=== PATIENT | male | born 1975 | race Caucasian/White ===

== ENCOUNTER 2017-03-23 11:01 | Emergency (ER) | payer BC ==
[2017-03-23 11:08] VITALS: BP 137/105
[2017-03-23] MEDS ORDERED: Sodium Chloride 0.9% 10 ML Syringe FLUSH PRN (11:12)
[2017-03-23] MEDS ORDERED: Adenosine 6 MG/2 ML SDV IVPUSH ONE (11:13)
[2017-03-23] MEDS ORDERED: Adenosine 6 MG/2 ML SDV ONE (11:14)
[2017-03-23] MEDS ORDERED: Sodium Chloride 0.9% 1,000 ML IV SCH (11:15)
[2017-03-23] MEDS ORDERED: Adenosine 12 MG/4 ML SDV ONE (11:15)
[2017-03-23] MEDS ORDERED: Adenosine 12 MG/4 ML SDV IVPUSH ONE (11:24)
--- NOTE | 2017-03-23 11:49 | EDM.PDOC ---
ED HPI GENERAL MEDICAL PROBLEM - General Chief Complaint: Cardiovascular Problem Stated Complaint: RAPID HEART RATE Time Seen by Provider: 03/23/17 11:07 Source of Information: Reports: Patient History Limitations: Reports: No Limitations - History of Present Illness INITIAL COMMENTS - FREE TEXT/NARRATIVE: The patient presents with SVT. He has a history of this. His last episode was last June. He has had about 6 episodes. He woke up with it. He has some mild chest tightness and shortness of breath. He has no fever, chills, cough, congestion or runny nose. He has been eating and drinking okay. He had 1 beer over the weekend. He has no abdominal pain, nausea or vomiting. He sees Dr Adkins. He has not seen a senior resident care director in years but he admits he may because he has had more episodes. Onset: Gradual Duration: Hour(s): (Woke up with it this morning) Location: Reports: Chest Quality: Reports: Other (Tightness) Severity: Mild Improves with: Reports: None Worsens with: Reports: None Context: Reports: Other (Woke up with it) Associated Symptoms: Reports: Chest Pain, Shortness of Breath. Denies: Cough, Fever/Chills, Nausea/Vomiting Chest Pain Score (Numeric/FACES): 5 - Related Data Allergies Allergy/AdvReac Type Severity Reaction Status Date / Time No Known Allergies Allergy Verified 03/23/17 11:08 Home Meds: Home Meds Lisinopril 10 mg PO DAILY 11/20/13 [History] Past Medical History HEENT History: Reports: Impaired Vision Other HEENT History: wears corrective lenses Cardiovascular History: Reports: Arrhythmia, Hypertension, Other (See Below) Other Cardiovascular History: SVT Respiratory History: Reports: Other (See Below) Other Respiratory History: seasonal allergies - Infectious Disease History Infectious Disease History: Reports: Chicken Pox - Past Surgical History Cardiovascular Surgical History: Reports: None Social & Family History - Tobacco Use Smoking Status *Q: Never Smoker Second Hand Smoke Exposure: No - Caffeine Use Caffeine Use: Reports: Soda - Alcohol Use Days Per Week of Alcohol Use: 4 Number of Drinks Per Day: 2 Total Drinks Per Week: 8 - Recreational Drug Use Recreational Drug Use: No ED ROS GENERAL - Review of Systems Review Of Systems: See Below Constitutional: Reports: No Symptoms HEENT: Reports: No Symptoms Respiratory: Reports: Shortness of Breath Cardiovascular: Reports: Chest Pain Endocrine: Reports: No Symptoms GI/Abdominal: Reports: No Symptoms : Reports: No Symptoms Musculoskeletal: Reports: No Symptoms ED EXAM, GENERAL - Physical Exam Exam: See Below Exam Limited By: No Limitations General Appearance: Alert, No Apparent Distress Ears: Normal External Exam Nose: Normal Inspection Head: Atraumatic, Normocephalic Neck: Normal Inspection Respiratory/Chest: No Respiratory Distress, Lungs Clear, Normal Breath Sounds Cardiovascular: No Edema, No Murmur, Tachycardia GI/Abdominal: Soft, Non-Tender, No Organomegaly, No Mass Back Exam: Normal Inspection Extremities: Normal Inspection Neurological: Alert, Oriented, No Motor/Sensory Deficits EKG INTERPRETATION EKG Date: 03/23/17 Time: 11:05 Rhythm: Other (SVT) Rate (Beats/Min): 180 [place]: Normal P-Wave: Present QRS: Normal ST-T: Normal QT: Normal Course - Vital Signs Last Recorded V/S: Last Vital Signs Temp 97.3 F 03/23/17 11:06 Pulse 92 03/23/17 11:54 Resp 22 H 03/23/17 11:54 BP 137/105 H 03/23/17 11:06 Pulse Ox 95 03/23/17 11:54 - Orders/Labs/Meds Orders: Active Orders 24 hr Category Date Time Status Cardiac Monitoring [RC] . DIRECTED Care 03/23/17 11:12 Active EKG Documentation Completion [RC] STAT Care 03/23/17 11:13 Active Oxygen Therapy [RC] PRN Care 03/23/17 11:12 Active Peripheral IV Care [RC] . DIRECTED Care 03/23/17 11:13 Active Sodium Chloride 0.9% [Normal Saline] 1,000 ml Med 03/23/17 11:15 Active IV ASDIRECTED Sodium Chloride 0.9% [Saline Flush] Med 03/23/17 11:12 Active 10 ml FLUSH ASDIRECTED PRN Peripheral IV Insertion Adult [OM.PC] Stat Oth 03/23/17 11:12 Ordered Medication Orders Sodium Chloride (Normal Saline) 1,000 mls @ 125 mls/hr IV ASDIRECTED RHYS Last Admin: 03/23/17 11:23 Dose: 125 mls/hr Sodium Chloride (Saline Flush) 10 ml FLUSH ASDIRECTED PRN PRN Reason: Keep Vein Open Last Admin: 03/23/17 11:23 Dose: 10 ml Labs: Laboratory Tests 03/23/17 03/23/17 Range/Units 11:10 12:00 WBC 6.75 (4.23-9.07) K/mm3 RBC 4.87 (4.63-6.08) M/mm3 Hgb 15.2 (13.7-17.5) gm/L Hct 43.3 (40.1-51.0) % MCV 88.9 (79.0-92.2) fl MCH 31.2 (25.7-32.2) pg MCHC 35.1 (32.2-35.5) g/dl RDW Std Deviation 41.5 (35.1-43.9) fL Plt Count 233 (163-337) K/mm3 MPV 10.0 (9.4-12.3) fl Neut % (Auto) 64.6 (34.0-67.9) % Lymph % (Auto) 25.2 (21.8-53.1) % [place] % (Auto) 9.0 (5.3-12.2) % Eos % (Auto) 1.0 (0.8-7.0) Baso % (Auto) 0.1 (0.1-1.2) % Neut # (Auto) 4.35 (1.78-5.38) K/mm3 Lymph # (Auto) 1.70 (1.32-3.57) K/mm3 [place] # (Auto) 0.61 (0.30-0.82) K/mm3 Eos # (Auto) 0.07 (0.04-0.54) K/mm3 Baso # (Auto) 0.01 (0.01-0.08) K/mm3 Sodium 137 (136-145) mEq/L Potassium 4.2 (3.5-5.1) mEq/L Chloride 102 (98-107) mEq/L Carbon Dioxide 26 (21-32) mEq/L Anion Gap 13.2 (5-15) BUN 13 (7-18) mg/dL Creatinine 1.2 (0.7-1.3) mg/dL Est Cr Clr Drug Dosing 89.81 mL/min Estimated GFR (MDRD) > 60 (>60) mL/min BUN/Creatinine Ratio 10.8 L (14-18) Glucose 105 (74-106) mg/dL Calcium 9.6 (8.5-10.1) mg/dL Total Bilirubin 0.5 (0.2-1.0) mg/dL AST 36 (15-37) U/L ALT 89 H (16-63) U/L Alkaline Phosphatase 26 L (46-116) U/L Troponin I < 0.017 (0.00-0.056) ng/mL Total Protein 7.6 (6.4-8.2) g/dl Albumin 4.4 (3.4-5.0) g/dl Globulin 3.2 gm/dL Albumin/Globulin Ratio 1.4 (1-2) Meds: Medications Generic Name Dose Route Start Last Admin Trade Name Freq PRN Reason Stop Dose Admin Sodium Chloride 1,000 mls @ 125 mls/hr 03/23/17 11:15 03/23/17 11:23 Normal Saline IV 125 mls/hr ASDIRECTED RHYS Administration Sodium Chloride 10 ml 03/23/17 11:12 03/23/17 11:23 Saline Flush FLUSH 10 ml ASDIRECTED PRN Administration Keep Vein Open Discontinued Medications Generic Name Dose Route Start Last Admin Trade Name Freq PRN Reason Stop Dose Admin Adenosine 6 mg 03/23/17 11:13 03/23/17 11:14 Adenocard IVPUSH 03/23/17 11:14 6 mg NOW ONE Administration Adenosine Confirm 03/23/17 11:14 03/23/17 11:22 Adenocard Administered 03/23/17 11:15 Not Given Dose 6 mg .ROUTE .STK-MED ONE Adenosine Confirm 03/23/17 11:15 03/23/17 11:22 Adenocard Administered 03/23/17 11:16 Not Given Dose 12 mg .ROUTE .STK-MED ONE Adenosine 12 mg 03/23/17 11:24 03/23/17 11:16 Adenocard IVPUSH 03/23/17 11:25 12 mg NOW ONE Administration - Re-Assessments/Exams Free Text/Narrative Re-Assessment/Exam: 03/23/17 12:08 I ordered an IV NS 1L bolus, labs, EKG, CXR and adenosine 6mg IVP. That did not help so I ordered an additional 12mgs of adenosine. That did convert him to a NSR. 03/23/17 12:09 His CBC and CMP look good. His troponin is negative. His CXR looks good. I will discharge him home and follow up with cardiology. Departure - Departure Time of Disposition: 12:20 Disposition: Home, Self-Care 01 Condition: Good Clinical Impression: Paroxysmal SVT (supraventricular tachycardia) Referrals: Ascencion Moreira MD [Primary Care Provider] - Forms: ED Department Discharge Additional Instructions: Take your medication as prescribed. Follow up with Dr Adkins to talk about getting a referral to cardiology. Please return if you have any other problems. - My Orders Last 24 Hours: My Active Orders 03/23/17 11:12 Cardiac Monitoring [RC] . DIRECTED Oxygen Therapy [RC] PRN Sodium Chloride 0.9% [Saline Flush] 10 ml FLUSH ASDIRECTED PRN Peripheral IV Insertion Adult [OM.PC] Stat 03/23/17 11:13 EKG Documentation Completion [RC] STAT Peripheral IV Care [RC] . DIRECTED 03/23/17 11:15 Sodium Chloride 0.9% [Normal Saline] 1,000 ml IV ASDIRECTED - Assessment/Plan Last 24 Hours: My Active Orders 03/23/17 11:12 Cardiac Monitoring [RC] . DIRECTED Oxygen Therapy [RC] PRN Sodium Chloride 0.9% [Saline Flush] 10 ml FLUSH ASDIRECTED PRN Peripheral IV Insertion Adult [OM.PC] Stat 03/23/17 11:13 EKG Documentation Completion [RC] STAT Peripheral IV Care [RC] . DIRECTED 03/23/17 11:15 Sodium Chloride 0.9% [Normal Saline] 1,000 ml IV ASDIRECTED
--- NOTE | 2017-03-23 12:14 | CR ---
Chest: Portable view of the chest was obtained. Comparison: Previous chest x-ray of 06/21/16. Heart size and mediastinum are normal. Lungs are clear. Bony structures are grossly intact. Impression: 1. Nothing acute is appreciated on portable chest x-ray. Diagnostic code #1
== END 2017-03-23 12:42 | disposition home or self-care (01) ==
LOC: JD.ED 11:01
DX: I47.1 Supraventricular tachycardia (principal); I10 Essential (primary) hypertension; Z79.899 Other long term (current) drug therapy
CPT/HCPCS: 36415; 71010; 80053; 84484; 85025; 93005; J0153; J7040; J7050; 96374; 99285; 99285-25

== ENCOUNTER 2017-07-23 13:37 | Emergency (ER) | payer BC ==
[2017-07-23 13:45] VITALS: BP 151/83
[2017-07-23] MEDS ORDERED: Adenosine 6 MG/2 ML SDV ONE (13:49)
[2017-07-23] MEDS ORDERED: Adenosine 12 MG/4 ML SDV ONE (13:49)
[2017-07-23] MEDS ORDERED: Adenosine 6 MG/2 ML SDV IVPUSH ONE (13:50)
[2017-07-23] MEDS ORDERED: Sodium Chloride 0.9% 1,000 ML IV ONE (13:55)
[2017-07-23] MEDS ORDERED: Sodium Chloride 0.9% 1,000 ML ONE (14:10)
--- NOTE | 2017-07-23 14:46 | EDM.PDOC ---
ED HPI GENERAL MEDICAL PROBLEM - General Chief Complaint: Cardiovascular Problem Stated Complaint: RAPID HEARTBEAT Time Seen by Provider: 07/23/17 13:45 Source of Information: Reports: Patient, RN Notes Reviewed - History of Present Illness INITIAL COMMENTS - FREE TEXT/NARRATIVE: 42 year old male with onset of palpitations, tachycardia about 40 minutes ago. No chest pain, mild dizziness. He has had this happen 8 times before, last episode about 5 months ago. Has been feeling fine up to this time, no abnormal prior sx, Not on any type of prophylactic medication. Was at rest when this started. - Related Data Allergies Allergy/AdvReac Type Severity Reaction Status Date / Time No Known Allergies Allergy Verified 07/23/17 13:45 Home Meds: Home Meds Lisinopril 10 mg PO DAILY 11/20/13 [History] Verapamil [Calan SR] 180 mg PO DAILY #30 tab.er 07/23/17 [Rx] Past Medical History HEENT History: Reports: Impaired Vision Other HEENT History: wears corrective lenses Cardiovascular History: Reports: Arrhythmia, Hypertension, Other (See Below) Other Cardiovascular History: SVT Respiratory History: Reports: Other (See Below) Other Respiratory History: seasonal allergies - Infectious Disease History Infectious Disease History: Reports: Chicken Pox - Past Surgical History Cardiovascular Surgical History: Reports: None Social & Family History - Tobacco Use Smoking Status *Q: Never Smoker Second Hand Smoke Exposure: No - Caffeine Use Caffeine Use: Reports: Soda - Alcohol Use Days Per Week of Alcohol Use: 4 Number of Drinks Per Day: 2 Total Drinks Per Week: 8 - Recreational Drug Use Recreational Drug Use: No ED ROS GENERAL - Review of Systems Review Of Systems: See Below Constitutional: Denies: Fever, Chills, Diaphoresis HEENT: Denies: Throat Pain, Vertigo, Vision Change Respiratory: Denies: Shortness of Breath Cardiovascular: Reports: Palpitations. Denies: Chest Pain GI/Abdominal: Denies: Abdominal Pain, Diarrhea, Nausea, Vomiting Musculoskeletal: Reports: No Symptoms Skin: Reports: No Symptoms Neurological: Reports: No Symptoms ED EXAM, GENERAL - Physical Exam Exam: See Below General Appearance: Alert, No Apparent Distress Eye Exam: Bilateral Eye: PERRL Throat/Mouth: Normal Inspection Head: Atraumatic Neck: Supple, Full Range of Motion Respiratory/Chest: No Respiratory Distress, Lungs Clear, Normal Breath Sounds Cardiovascular: Tachycardia GI/Abdominal: Soft, Non-Tender Back Exam: Normal Inspection. No: CVA Tenderness (L), CVA Tenderness (R) Extremities: Normal Inspection, Normal Range of Motion Neurological: Alert, Oriented, No Motor/Sensory Deficits Skin Exam: Warm, Dry, Normal Color EKG INTERPRETATION EKG Date: 07/23/17 Rhythm: Other (SVT, rate 182) [place]: Normal P-Wave: Present QRS: Normal ST-T: Depressed (ST depression V3-5) Course - Vital Signs Last Recorded V/S: Last Vital Signs Temp 97.5 F 07/23/17 13:42 Pulse 181 H 07/23/17 13:42 Resp 18 07/23/17 13:42 BP 151/83 H 07/23/17 13:42 Pulse Ox 100 07/23/17 13:42 - Orders/Labs/Meds Labs: Laboratory Tests 07/23/17 07/23/17 Range/Units 13:45 13:45 WBC 7.57 (4.23-9.07) K/mm3 RBC 5.37 (4.63-6.08) M/mm3 Hgb 16.6 (13.7-17.5) gm/L Hct 47.2 (40.1-51.0) % MCV 87.9 (79.0-92.2) fl MCH 30.9 (25.7-32.2) pg MCHC 35.2 (32.2-35.5) g/dl RDW Std Deviation 41.3 (35.1-43.9) fL Plt Count 270 (163-337) K/mm3 MPV 10.0 (9.4-12.3) fl Neut % (Auto) 63.6 (34.0-67.9) % Lymph % (Auto) 25.8 (21.8-53.1) % [place] % (Auto) 9.1 (5.3-12.2) % Eos % (Auto) 0.9 (0.8-7.0) Baso % (Auto) 0.3 (0.1-1.2) % Neut # (Auto) 4.82 (1.78-5.38) K/mm3 Lymph # (Auto) 1.95 (1.32-3.57) K/mm3 [place] # (Auto) 0.69 (0.30-0.82) K/mm3 Eos # (Auto) 0.07 (0.04-0.54) K/mm3 Baso # (Auto) 0.02 (0.01-0.08) K/mm3 Sodium 140 (136-145) mEq/L Potassium 4.1 (3.5-5.1) mEq/L Chloride 106 (98-107) mEq/L Carbon Dioxide 21 (21-32) mEq/L Anion Gap 17.1 H (5-15) BUN 14 (7-18) mg/dL Creatinine 1.2 (0.7-1.3) mg/dL Est Cr Clr Drug Dosing 88.92 mL/min Estimated GFR (MDRD) > 60 (>60) mL/min BUN/Creatinine Ratio 11.7 L (14-18) Glucose 113 H (74-106) mg/dL Calcium 9.3 (8.5-10.1) mg/dL Total Bilirubin 0.5 (0.2-1.0) mg/dL AST 39 H (15-37) U/L ALT 61 (16-63) U/L Alkaline Phosphatase 26 L (46-116) U/L Total Protein 7.6 (6.4-8.2) g/dl Albumin 4.3 (3.4-5.0) g/dl Globulin 3.3 gm/dL Albumin/Globulin Ratio 1.3 (1-2) Meds: Medications Discontinued Medications Generic Name Dose Route Start Last Admin Trade Name Jaeq PRN Reason Stop Dose Admin Adenosine Confirm 07/23/17 13:49 07/23/17 14:00 Adenocard Administered 07/23/17 13:50 Not Given Dose 6 mg .ROUTE .STK-MED ONE Adenosine Confirm 07/23/17 13:49 07/23/17 14:02 Adenocard Administered 07/23/17 13:50 Not Given Dose 12 mg .ROUTE .STK-MED ONE Adenosine 6 mg 07/23/17 13:50 07/23/17 14:02 Adenocard IVPUSH 07/23/17 13:51 6 mg NOW ONE Administration Sodium Chloride Confirm 07/23/17 14:10 07/23/17 14:36 Normal Saline Administered 07/23/17 14:11 Not Given Dose 1,000 mls @ as directed .ROUTE .STK-MED ONE Sodium Chloride 1,000 mls @ 999 mls/hr 07/23/17 13:55 07/23/17 13:55 Normal Saline IV 07/23/17 14:55 999 mls/hr ONETIME ONE Administration - Re-Assessments/Exams Free Text/Narrative Re-Assessment/Exam: 07/23/17 16:19 valsalva slowed his rate slightly but did not convert him, given adenosine 6 mg IV and with that he converted to sinus rythm, labs relatively OK , mildly dehydrated, no further ectopy or rythm changes. Because this is his 9th episode and BP also running a bit high will start him on verapamil 180 mg daily and see how he does with that. Discharge instr. as documented. Departure - Departure Time of Disposition: 14:56 Disposition: Home, Self-Care 01 Condition: Fair Clinical Impression: SVT (supraventricular tachycardia) Hypertension Qualifiers: Hypertension type: essential hypertension Qualified Code(s): I10 - Essential ( primary) hypertension Prescriptions: Verapamil [Calan SR] 180 mg PO DAILY #30 tab.er Instructions: Paroxysmal Supraventricular Tachycardia, [id number] Referrals: Ascencion Moreira MD [Primary Care Provider] - Forms: ED Department Discharge Additional Instructions: begin verapamil 180 mg extended release once daily, continue lisinopril 10 mg daily for now. Drink plenty of water to maintain hydration. Try check your BP and heart rate once or twice daily and keep a record of that for Dr Adkins. See Dr Adkins at clinic in about 7 to 10 days for follow up. Return to ED as needed.
== END 2017-07-23 15:13 | disposition home or self-care (01) ==
LOC: JD.ED 13:37
DX: I47.1 Supraventricular tachycardia (principal); I10 Essential (primary) hypertension
CPT/HCPCS: 36415; 80053; 85025; 96361; 96374; 99285; J0153; J7040; 93010; 99284-25

== ENCOUNTER 2020-04-05 16:15 | Emergency (ER) | payer BC ==
[2020-04-05 16:30] VITALS: BP 160/111; PULSE 180
[2020-04-05] MEDS ORDERED: Adenosine 6 MG/2 ML SDV ONE (16:33)
[2020-04-05] MEDS ORDERED: Adenosine 12 MG/4 ML SDV ONE (16:39)
[2020-04-05] MEDS ORDERED: Metoprolol Tartrate 25 MG Tab PO ONE (18:15)
--- NOTE | 2020-04-05 18:17 | EDM.PDOC ---
ED HPI GENERAL MEDICAL PROBLEM - General Chief Complaint: Cardiovascular Problem Stated Complaint: SVT HEART EPISODE Time Seen by Provider: 04/05/20 16:15 - History of Present Illness INITIAL COMMENTS - FREE TEXT/NARRATIVE: 44-year-old male presents to the emergency room with supraventricular tachycardia. Patient has an episode every year to year and a half. He is contemplated getting ablation done for this and was to see somebody for it however he put this off due to coven. The patient has been taking what sounds like Toprol-XL he cannot recall the dose but he ran out and has a refill waiting for him at the pharmacy but has been off this for a while. Patient does not have any chest pain chest pressure no breathing difficulties no shortness of breath. On telemetry in the trauma room his heart rate is in the 180s fairly regular. - Related Data Allergies Allergy/AdvReac Type Severity Reaction Status Date / Time No Known Allergies Allergy Verified 04/05/20 16:30 Home Meds: Home Meds . [No Known Home Meds] 04/05/20 [History] Past Medical History HEENT History: Reports: Impaired Vision Other HEENT History: wears corrective lenses Cardiovascular History: Reports: Arrhythmia, Hypertension, Other (See Below) Other Cardiovascular History: SVT Respiratory History: Reports: Other (See Below) Other Respiratory History: seasonal allergies Musculoskeletal History: Reports: Other (See Below) Other Musculoskeletal History: chronic low back pain - Infectious Disease History Infectious Disease History: Reports: Chicken Pox - Past Surgical History Cardiovascular Surgical History: Reports: None Social & Family History - Family History Neurological: Reports: CVA Oncologic: Reports: Lung - Caffeine Use Caffeine Use: Reports: Soda - Living Situation & Occupation Living situation: Reports: Single Occupation: Employed (Self-employed car [employer]) ED ROS GENERAL - Review of Systems Review Of Systems: See Below Constitutional: Reports: No Symptoms HEENT: Reports: No Symptoms Respiratory: Reports: No Symptoms Cardiovascular: Reports: Palpitations. Denies: Chest Pain, Dyspnea on Exertion, Edema, Lightheadedness Endocrine: Reports: No Symptoms GI/Abdominal: Reports: No Symptoms : Reports: No Symptoms Musculoskeletal: Reports: No Symptoms Neurological: Reports: No Symptoms ED EXAM, GENERAL - Physical Exam Exam: See Below Exam Limited By: No Limitations General Appearance: Alert, No Apparent Distress Head: Atraumatic, Normocephalic Neck: Normal Inspection, Supple, Non-Tender, Full Range of Motion Respiratory/Chest: No Respiratory Distress, Lungs Clear, Normal Breath Sounds Cardiovascular: No Edema, No Murmur, Tachycardia. No: Regular Rate, Rhythm GI/Abdominal: Normal Bowel Sounds, Soft, Non-Tender EKG INTERPRETATION EKG Date: 04/05/20 Rhythm: Other (SVT) Rate (Beats/Min): 177 [place]: Normal QRS: Normal ST-T: Other (Changes consistent with SVT) QT: Normal Comparison: No Change (On his postconversion EKG compared to his EKG from January of last year) EKG Interpretation Comments: Initial EKG abnormal SVT. Second EKG normal Course - Vital Signs Last Recorded V/S: Last Vital Signs Temp Pulse 180 H 04/05/20 16:26 Resp 20 04/05/20 16:26 BP 160/111 H 04/05/20 16:26 Pulse Ox 100 04/05/20 16:26 - Orders/Labs/Meds Orders: Active Orders 24 hr Category Date Time Status EKG 12 Lead [EKG Documentation Completion] [RC] ROUTINE Care 04/05/20 16:47 Active EKG 12 Lead [EKG Documentation Completion] [RC] STAT Care 04/05/20 16:26 Active EKG 12 Lead [EKG Documentation Completion] [RC] STAT Care 04/05/20 16:37 Activ e Labs: Laboratory Tests 04/05/20 04/05/20 Range/Units 16:35 16:35 WBC 7.64 (4.23-9.07) K/mm3 RBC 5.37 (4.63-6.08) M/mm3 Hgb 16.5 (13.7-17.5) gm/dl Hct 48.1 (40.1-51.0) % MCV 89.6 (79.0-92.2) fl MCH 30.7 (25.7-32.2) pg MCHC 34.3 (32.2-35.5) g/dl RDW Std Deviation 41.9 (35.1-43.9) fL Plt Count 273 (163-337) K/mm3 MPV 10.6 (9.4-12.3) fl Neut % (Auto) 63.9 (34.0-67.9) % Lymph % (Auto) 25.1 (21.8-53.1) % [place] % (Auto) 9.7 (5.3-12.2) % Eos % (Auto) 0.9 (0.8-7.0) Baso % (Auto) 0.3 (0.1-1.2) % Neut # (Auto) 4.88 (1.78-5.38) K/mm3 Lymph # (Auto) 1.92 (1.32-3.57) K/mm3 [place] # (Auto) 0.74 (0.30-0.82) K/mm3 Eos # (Auto) 0.07 (0.04-0.54) K/mm3 Baso # (Auto) 0.02 (0.01-0.08) K/mm3 Sodium 139 (136-145) mEq/L Potassium 3.8 (3.5-5.1) mEq/L Chloride 103 (98-107) mEq/L Carbon Dioxide 27 (21-32) mEq/L Anion Gap 12.8 (5-15) BUN 12 (7-18) mg/dL Creatinine 1.2 (0.7-1.3) mg/dL Est Cr Clr Drug Dosing 87.12 mL/min Estimated GFR (MDRD) > 60 (>60) mL/min BUN/Creatinine Ratio 10.0 L (14-18) Glucose 110 H (74-106) mg/dL Calcium 9.5 (8.5-10.1) mg/dL Magnesium 2.1 (1.8-2.4) mg/dl Total Bilirubin 0.5 (0.2-1.0) mg/dL AST 25 (15-37) U/L ALT 47 (16-63) U/L Alkaline Phosphatase 31 L (46-116) U/L Troponin I < 0.017 (0.00-0.056) ng/mL Total Protein 7.9 (6.4-8.2) g/dl Albumin 4.6 (3.4-5.0) g/dl Globulin 3.3 gm/dL Albumin/Globulin Ratio 1.4 (1-2) Meds: Medications Discontinued Medications Generic Name Dose Route Start Last Admin Trade Name Freq PRN Reason Stop Dose Admin Adenosine Confirm 04/05/20 16:33 Adenocard Administered 04/05/20 16:34 Dose 6 mg .ROUTE .STK-MED ONE Adenosine Confirm 09/24/20 16:39 Adenocard Administered 04/05/20 16:40 Dose 12 mg .ROUTE .STK-MED ONE Metoprolol Tartrate 25 mg 04/05/20 18:15 Lopressor PO 04/05/20 18:16 ONETIME ONE - Re-Assessments/Exams Free Text/Narrative Re-Assessment/Exam: 04/05/20 18:21 The patient was given 6 mg of adenosine and this did nothing. This was followed up with 12 mg of adenosine and he converted this was captured on EKG. After the cardioversion and an EKG was obtained which shows was entirely normal Departure - Departure Time of Disposition: 18:15 Disposition: Home, Self-Care 01 Clinical Impression: Supraventricular tachycardia Referrals: Ascencion Moreira MD [Primary Care Provider] - Forms: ED Department Discharge Additional Instructions: Return to the emergency room with any questions problems or worsening symptoms. Start your metoprolol tomorrow. Follow-up with your regular physician next week if possible. Sepsis Event Note (ED) - Evaluation Sepsis Screening Result: No Definite Risk - Focused Exam Vital Signs: Vital Signs Pulse Resp BP Pulse Ox 04/05/20 16:26 180 H 20 160/111 H 100
== END 2020-04-05 18:42 | disposition home or self-care (01) ==
LOC: JD.ED 16:15
DX: I47.1 Supraventricular tachycardia (principal); I10 Essential (primary) hypertension
CPT/HCPCS: 36415; 80053; 83735; 84484; 85025; 93005; 99285; J0153; 93010; 99283

== ENCOUNTER 2020-11-25 11:19 | Emergency (ER) | payer BC ==
[2020-11-25] MEDS ORDERED: Adenosine 12 MG/4 ML SDV ONE (11:26)
[2020-11-25] MEDS ORDERED: Adenosine 6 MG/2 ML SDV ONE (11:26)
[2020-11-25] MEDS ORDERED: Sodium Chloride 0.9% 10 ML Syringe FLUSH PRN (11:27)
[2020-11-25] MEDS ORDERED: Adenosine 6 MG/2 ML SDV IVPUSH ONE (11:28)
[2020-11-25] MEDS ORDERED: Sodium Chloride 0.9% 1,000 ML IV SCH (11:30)
--- NOTE | 2020-11-25 11:50 | EDM.PDOC ---
ED [facility] GENERAL MEDICAL PROBLEM - General Chief Complaint: Cardiovascular Problem Stated Complaint: SVT ATTACK Time Seen by Provider: 11/25/20 11:24 Source of Information: Reports: Patient History Limitations: Reports: No Limitations - History of Present Illness INITIAL COMMENTS - FREE TEXT/NARRATIVE: The patient presents with SVT. He said about 45 minutes ago he felt his heart racing. He also has some shortness of breath but no chest pain. He has a history of SVT. He has been here multiple times over the past few years. He did see cardiology and they put him on metoprolol. They did not do any procedures like ablation because he did not have enough episodes. He said he may be a little dehydrated. He was busy yesterday. He has no fever, chills, cough, abdominal pain, nausea or vomiting. His heart rate was 160s to 180s. Onset: Sudden Duration: Minutes: (45) Severity: Moderate Improves with: Reports: None Worsens with: Reports: None Associated Symptoms: Reports: Shortness of Breath. Denies: Confusion, Chest Pain, Cough, Fever/Chills, Headaches, Nausea/Vomiting - Related Data Allergies Allergy/AdvReac Type Severity Reaction Status Date / Time No Known Allergies Allergy Verified 11/25/20 11:41 Home Meds: Home Meds Metoprolol Succinate [Toprol Xl] 100 mg PO DAILY 11/25/20 [History] Montelukast [Singulair] 10 mg PO DAILY 11/25/20 [History] Past Medical History HEENT History: Reports: Impaired Vision Other HEENT History: wears corrective lenses Cardiovascular History: Reports: Arrhythmia, Hypertension, Other (See Below) Other Cardiovascular History: SVT Respiratory History: Reports: Other (See Below) Other Respiratory History: seasonal allergies Musculoskeletal History: Reports: Other (See Below) Other Musculoskeletal History: chronic low back pain - Infectious Disease History Infectious Disease History: Reports: Chicken Pox - Past Surgical History HEENT Surgical History: Reports: Tonsillectomy Cardiovascular Surgical History: Reports: None Social & Family History - Family History Neurological: Reports: CVA Oncologic: Reports: Lung - Tobacco Use Tobacco Use Status *Q: Never Tobacco User Second Hand Smoke Exposure: No - Caffeine Use Caffeine Use: Reports: Coffee - Recreational Drug Use Recreational Drug Use: No - Living Situation & Occupation Living situation: Reports: Single Occupation: Employed (Self-employed car dealership) ED [facility] GENERAL - Review of Systems Review Of Systems: See Below Constitutional: Reports: No Symptoms HEENT: Reports: No Symptoms Respiratory: Reports: Shortness of Breath. Denies: Cough Cardiovascular: Reports: Palpitations. Denies: Chest Pain Endocrine: Reports: No Symptoms GI/Abdominal: Reports: No Symptoms : Reports: No Symptoms Musculoskeletal: Reports: No Symptoms ED EXAM, GENERAL - Physical Exam Exam: See Below Exam Limited By: No Limitations General Appearance: Alert, No Apparent Distress Ears: Normal External Exam Nose: Normal Inspection Head: Atraumatic, Normocephalic Neck: Normal Inspection Respiratory/Chest: No Respiratory Distress, Lungs Clear, Normal Breath Sounds Cardiovascular: No Edema, No Murmur, Tachycardia GI/Abdominal: Soft, Non-Tender, No Organomegaly, No Mass Extremities: Normal Inspection #1 Interpretation EKG Date: 11/25/20 Time: 11:27 Rhythm: Other (SVT) Rate (Beats/Min): 174 [place]: Normal P-Wave: Present QRS: Normal ST-T: Normal QT: Normal #2 Interpretation EKG Date: 11/25/20 Time: 11:31 Rhythm: NSR Rate (Beats/Min): 87 [place]: Normal P-Wave: Present QRS: Normal ST-T: Normal QT: Normal Course - Vital Signs Last Recorded V/S: Last Vital Signs Temp 97.2 F 11/25/20 11:20 Pulse 86 11/25/20 11:45 Resp 16 11/25/20 11:45 BP 137/94 H 11/25/20 11:45 Pulse Ox 95 11/25/20 11:45 - Orders/Labs/Meds Orders: Active Orders 24 hr Category Date Time Status Cardiac Monitoring [RC] . DIRECTED Care 11/25/20 11:27 Active EKG Documentation Completion [RC] ASDIRECTED Care 11/25/20 11:50 Active EKG Documentation Completion [RC] STAT Care 11/25/20 11:28 Active Peripheral IV Care [RC] . DIRECTED Care 11/25/20 11:27 Active Sodium Chloride 0.9% [Normal Saline] 1,000 ml Med 11/25/20 11:30 Active IV .BOLUS Sodium Chloride 0.9% [Saline Flush] Med 11/25/20 11:27 Active 10 ml FLUSH ASDIRECTED PRN Peripheral IV Insertion Adult [OM.PC] Stat Oth 11/25/20 11:27 Ordered EKG 12 Lead [EK] Stat Ther 11/25/20 11:50 Ordered Medication Orders Sodium Chloride (Normal Saline) 1,000 mls @ 1,000 mls/hr IV .BOLUS RHYS Last Admin: 11/25/20 11:34 Dose: 1,000 mls/hr Documented by: SARAH Sodium Chloride (Sodium Chloride 0.9% 10 Ml Syringe) 10 ml FLUSH ASDIRECTED PRN PRN Reason: Keep Vein Open Last Admin: 11/25/20 11:35 Dose: 10 ml Documented by: SARAH Labs: Laboratory Tests 11/25/20 11/25/20 Range/Units 11:28 11:28 WBC 8.20 (4.23-9.07) K/mm3 RBC 5.32 (4.63-6.08) M/mm3 Hgb 16.5 (13.7-17.5) gm/dl Hct 48.2 (40.1-51.0) % MCV 90.6 (79.0-92.2) fl MCH 31.0 (25.7-32.2) pg MCHC 34.2 (32.2-35.5) g/dl RDW Std Deviation 42.9 (35.1-43.9) fL Plt Count 271 (163-337) K/mm3 MPV 10.3 (9.4-12.3) fl Neut % (Auto) 59.0 (34.0-67.9) % Lymph % (Auto) 31.2 (21.8-53.1) % [place] % (Auto) 8.8 (5.3-12.2) % Eos % (Auto) 0.6 L (0.8-7.0) Baso % (Auto) 0.2 (0.1-1.2) % Neut # (Auto) 4.83 (1.78-5.38) K/mm3 Lymph # (Auto) 2.56 (1.32-3.57) K/mm3 [place] # (Auto) 0.72 (0.30-0.82) K/mm3 Eos # (Auto) 0.05 (0.04-0.54) K/mm3 Baso # (Auto) 0.02 (0.01-0.08) K/mm3 Sodium 142 (136-145) mEq/L Potassium 3.8 (3.5-5.1) mEq/L Chloride 104 (98-107) mEq/L Carbon Dioxide 27 (21-32) mEq/L Anion Gap 14.8 (5-15) BUN 18 (7-18) mg/dL Creatinine 1.2 (0.7-1.3) mg/dL Est Cr Clr Drug Dosing 86.22 mL/min Estimated GFR (MDRD) > 60 (>60) mL/min BUN/Creatinine Ratio 15.0 (14-18) Glucose 108 H (70-99) mg/dL Calcium 9.3 (8.5-10.1) mg/dL Total Bilirubin 0.5 (0.2-1.0) mg/dL AST 31 (15-37) U/L ALT 67 H (16-63) U/L Alkaline Phosphatase 30 L (46-116) U/L Troponin I < 0.017 (0.00-0.056) ng/mL Total Protein 7.9 (6.4-8.2) g/dl Albumin 4.6 (3.4-5.0) g/dl Globulin 3.3 gm/dL Albumin/Globulin Ratio 1.4 (1-2) TSH 3rd Generation 1.739 (0.358-3.74) uIU/mL Meds: Medications Generic Name Dose Route Start Last Admin Trade Name Freq PRN Reason Stop Dose Admin Sodium Chloride 1,000 mls @ 1,000 mls/hr 11/25/20 11:30 11/25/20 11:34 Normal Saline IV 1,000 mls/hr .BOLUS RHYS Administration Sodium Chloride 10 ml 11/25/20 11:27 11/25/20 11:35 Sodium Chloride 0.9% 10 Ml Syringe FLUSH 10 ml ASDIRECTED PRN Administration Keep Vein Open Discontinued Medications Generic Name Dose Route Start Last Admin Trade Name Freq PRN Reason Stop Dose Admin Adenosine 6 mg 11/25/20 11:28 11/25/20 11:35 Adenosine 6 Mg/2 Ml Sdv IVPUSH 11/25/20 11:29 6 mg NOW ONE Administration Adenosine Confirm 11/25/20 11:26 11/25/20 11:35 Adenosine 6 Mg/2 Ml Sdv Administered 11/25/20 11:27 Not Given Dose 6 mg .ROUTE .STK-MED ONE Adenosine Confirm 11/25/20 11:26 11/25/20 11:35 Adenosine 12 Mg/4 Ml Sdv Administered 11/25/20 11:27 Not Given Dose 12 mg .ROUTE .STK-MED ONE - Re-Assessments/Exams Free Text/Narrative Re-Assessment/Exam: 11/25/20 11:52 I ordered an IV NS 1L bolus, EKG, labs, and adenosine 6mg IV. His EKG confirms SVT. He converted nicely with 6mg of adenosine. 11/25/20 12:20 His heart rate is still normal and his labs look good. I will discharge him home. Departure - Departure Time of Disposition: 12:20 Disposition: Home, Self-Care 01 Condition: Good Clinical Impression: SVT (supraventricular tachycardia) Referrals: Ascencion Moreira MD [Primary Care Provider] - 1 Week Forms: ED Department Discharge Additional Instructions: Drink plenty of fluids. Take your medications as prescribed. Please return if you are worse. Sepsis Event Note (ED) - Evaluation Sepsis Screening Result: No Definite Risk - Focused Exam Vital Signs: Vital Signs Temp Pulse Resp BP Pulse Ox 11/25/20 11:45 86 16 137/94 H 95 11/25/20 11:20 97.2 F 173 H 16 136/98 H 98 - My Orders Last 24 Hours: My Active Orders 11/25/20 11:27 Cardiac Monitoring [RC] . DIRECTED Peripheral IV Care [RC] . DIRECTED Sodium Chloride 0.9% [Saline Flush] 10 ml FLUSH ASDIRECTED PRN Peripheral IV Insertion Adult [OM.PC] Stat 11/25/20 11:28 EKG Documentation Completion [RC] STAT 11/25/20 11:30 Sodium Chloride 0.9% [Normal Saline] 1,000 ml IV .BOLUS 11/25/20 11:50 EKG Documentation Completion [RC] ASDIRECTED EKG 12 Lead [EK] Stat - Assessment/Plan Last 24 Hours: My Active Orders 11/25/20 11:27 Cardiac Monitoring [RC] . DIRECTED Peripheral IV Care [RC] . DIRECTED Sodium Chloride 0.9% [Saline Flush] 10 ml FLUSH ASDIRECTED PRN Peripheral IV Insertion Adult [OM.PC] Stat 11/25/20 11:28 EKG Documentation Completion [RC] STAT 11/25/20 11:30 Sodium Chloride 0.9% [Normal Saline] 1,000 ml IV .BOLUS 11/25/20 11:50 EKG Documentation Completion [RC] ASDIRECTED EKG 12 Lead [EK] Stat
[2020-11-25 12:21] VITALS: BP 125/81
[2020-11-25 12:30] VITALS: PULSE 82
== END 2020-11-25 12:28 | disposition home or self-care (01) ==
LOC: JD.ED 11:19
DX: I47.1 Supraventricular tachycardia (principal); I10 Essential (primary) hypertension; Z79.899 Other long term (current) drug therapy
CPT/HCPCS: 36415; 80053; 84443; 84484; 85025; 93005; 96374; 99285; J0153; J7030; 93010; 99284

== ENCOUNTER 2021-06-02 15:05 | Emergency (ER) | payer BC ==
[2021-06-02] MEDS ORDERED: Adenosine 6 MG/2 ML SDV IVPUSH ONE ×2 (15:19→15:37)
[2021-06-02] MEDS ORDERED: Adenosine 6 MG/2 ML SDV ONE (15:19)
[2021-06-02] MEDS: Adenosine 12 MG/4 ML SDV ONE ×2 (15:24→15:39)
--- NOTE | 2021-06-02 15:25 | EDM.PDOC ---
ED [facility] GENERAL MEDICAL PROBLEM - General Chief Complaint: Cardiovascular Problem Stated Complaint: IRREGULAR HEART BEAT Time Seen by Provider: 06/02/21 15:13 Source of Information: Reports: Patient History Limitations: Reports: No Limitations - History of Present Illness INITIAL COMMENTS - FREE TEXT/NARRATIVE: 46-year-old male presents to the ED with feeling of rapid irregular heartbeat starting about 45 minutes before coming to the ED. He has a history of recurrent bouts of SVT for about the last 8 to 10 years. Usually it was happening once every 2 to 3 years lately has been happening about once every 6 months. He has seen cardiology recently I believe Dr. Jimi Garcia and he is due for further investigations and contemplation of an ablation after the holidays. He has associated shortness of breath heaviness pressure to sensation central chest and mild lightheadedness. He was able to drive the car to the ED. He has been well recently. He states he was just on vacation out to [place] in the [facility] in [place] where he took his mom for her birthday. No recent excess alcohol use. No energy drink use. Onset: Today, Sudden Onset Date: 06/02/21 Onset Time: 14:30 Duration: Minutes: Location: Reports: Chest (Feels his heart racing and fluttering in his chest and going fast.) Quality: Reports: Other Severity: Moderate Improves with: Reports: None Worsens with: Reports: Movement Context: Reports: Other (Spontaneous occurrence of racing heart to 45 minutes before coming to the ED). Denies: Activity (Bending makes him feel a bit worse.), Exercise, Lifting, Sick Contact, Trauma Associated Symptoms: Reports: Chest Pain, Shortness of Breath, Other. Denies: Confusion, Cough, cough w sputum (Asked heaviness but not pain), Diaphoresis, Fever/Chills, Headaches, Loss of Appetite, Malaise, Nausea/Vomiting, Rash, Seizure Treatments ROTARY CUTTER: Reports: Other (see below) (Lightheadedness none.) Chest Pain Score (Numeric/FACES): 3 - Related Data Allergies Allergy/AdvReac Type Severity Reaction Status Date / Time No Known Allergies Allergy Verified 06/02/21 15:29 Home Meds: Home Meds Metoprolol Succinate [Toprol Xl] 100 mg PO BEDTIME 11/25/20 [History] Montelukast [Singulair] 10 mg PO DAILY 11/25/20 [History] Past Medical History HEENT History: Reports: Impaired Vision Other HEENT History: wears corrective lenses Cardiovascular History: Reports: Arrhythmia, Hypertension, Other (See Below) Other Cardiovascular History: SVT Respiratory History: Reports: Other (See Below) Other Respiratory History: seasonal allergies Musculoskeletal History: Reports: Other (See Below) Other Musculoskeletal History: chronic low back pain - Infectious Disease History Infectious Disease History: Reports: Chicken Pox - Past Surgical History HEENT Surgical History: Reports: Tonsillectomy Cardiovascular Surgical History: Reports: None Social & Family History - Family History Neurological: Reports: CVA Oncologic: Reports: Lung - Caffeine Use Caffeine Use: Reports: Coffee - Living Situation & Occupation Living situation: Reports: Single Occupation: Employed (Self-employed car dealership) ED [facility] GENERAL - Review of Systems Review Of Systems: See Below Constitutional: Reports: No Symptoms HEENT: Reports: Glasses Respiratory: Reports: No Symptoms Cardiovascular: Reports: Other (Frequent bouts of SVT) Endocrine: Reports: Fatigue GI/Abdominal: Reports: No Symptoms : Reports: No Symptoms Musculoskeletal: Reports: Joint Pain Skin: Reports: No Symptoms (Knees hips low back at times) Neurological: Reports: No Symptoms Psychiatric: Reports: No Symptoms Hematologic/Lymphatic: Reports: No Symptoms Immunologic: Reports: No Symptoms ED EXAM, GENERAL - Physical Exam Exam: See Below Exam Limited By: No Limitations General Appearance: Alert, WD/WN, Anxious, Other (Mildly anxious. Heart rate is 185 to 188/min. No P waves are discernible compatible with a narrow complex tachycardia or SVT) Eye Exam: Bilateral Eye: Normal Inspection, PERRL Throat/Mouth: Normal Inspection, Normal Lips, Normal Teeth, Normal Voice Head: Atraumatic, Normocephalic Neck: Normal Inspection, Supple, Non-Tender, Full Range of Motion. No: Carotid Bruit, Lymphadenopathy (L) Respiratory/Chest: No Respiratory Distress, Lungs Clear, Normal Breath Sounds, No Accessory Muscle Use, Chest Non-Tender Cardiovascular: No Edema, No Gallop, No JVD, No Rub, Tachycardia (SVT on the monitor of 188/min). No: Normal Peripheral Pulses, Regular Rate, Rhythm Peripheral Pulses: 2+: Carotid (L), Carotid (R), Posterior Tibial (L), Posterior Tibial (R), Dorsalis Pedis (L), Dorsalis Pedis (R) GI/Abdominal: Normal Bowel Sounds, Soft, Non-Tender, No Organomegaly, No Distention, Other (Moderately obese. Abdominal girth limits ability to palpate solid organs) Back Exam: Normal Inspection, Full Range of Motion. No: CVA Tenderness (L), CVA Tenderness (R) Extremities: Normal Inspection, Normal Range of Motion, Non-Tender, No Pedal Edema Neurological: Alert, Oriented, CN II-XII Intact, Normal Cognition Psychiatric: Normal Mood, Anxious (Mildly anxious) Skin Exam: Warm, Dry, Intact, Normal Color, No Rash Course - Vital Signs Last Recorded V/S: Last Vital Signs Temp 36.2 C 06/02/21 15:10 Pulse 176 H 06/02/21 15:10 Resp 18 06/02/21 15:10 BP 159/109 H 06/02/21 15:10 Pulse Ox 99 06/02/21 15:10 - Orders/Labs/Meds Labs: Laboratory Tests 06/02/21 06/02/21 Range/Units 15:15 15:15 WBC 8.59 (4.23-9.07) K/mm3 RBC 5.57 (4.63-6.08) M/mm3 Hgb 17.1 (13.7-17.5) gm/dl Hct 50.1 (40.1-51.0) % MCV 89.9 (79.0-92.2) fl MCH 30.7 (25.7-32.2) pg MCHC 34.1 (32.2-35.5) g/dl RDW Std Deviation 41.9 (35.1-43.9) fL Plt Count 304 (163-337) K/mm3 MPV 10.5 (9.4-12.3) fl Neut % (Auto) 60.3 (34.0-67.9) % Lymph % (Auto) 29.7 (21.8-53.1) % [place] % (Auto) 8.8 (5.3-12.2) % Eos % (Auto) 0.7 L (0.8-7.0) Baso % (Auto) 0.3 (0.1-1.2) % Neut # (Auto) 5.17 (1.78-5.38) K/mm3 Lymph # (Auto) 2.55 (1.32-3.57) K/mm3 [place] # (Auto) 0.76 (0.30-0.82) K/mm3 Eos # (Auto) 0.06 (0.04-0.54) K/mm3 Baso # (Auto) 0.03 (0.01-0.08) K/mm3 Sodium 140 (136-145) mEq/L Potassium 3.9 (3.5-5.1) mEq/L Chloride 102 (98-107) mEq/L Carbon Dioxide 30 (21-32) mEq/L Anion Gap 11.9 (5-15) BUN 17 (7-18) mg/dL Creatinine 1.1 (0.7-1.3) mg/dL Est Cr Clr Drug Dosing 93.08 mL/min Estimated GFR (MDRD) > 60 (>60) mL/min BUN/Creatinine Ratio 15.5 (14-18) Glucose 98 (70-99) mg/dL Calcium 10.3 H (8.5-10.1) mg/dL Magnesium 2.0 (1.8-2.4) mg/dL Total Bilirubin 0.4 (0.2-1.0) mg/dL AST 26 (15-37) U/L ALT 54 (16-63) U/L Alkaline Phosphatase 29 L (46-116) U/L CK-MB (CK-2) 1.3 (0-3.6) ng/ml Troponin I < 0.017 (0.00-0.056) ng/mL Total Protein 7.9 (6.4-8.2) g/dl Albumin 4.5 (3.4-5.0) g/dl Globulin 3.4 gm/dL Albumin/Globulin Ratio 1.3 (1-2) TSH 3rd Generation 1.410 (0.358-3.74) uIU/mL Meds: Medications Discontinued Medications Generic Name Dose Route Start Last Admin Trade Name Harshil PRN Reason Stop Dose Admin Adenosine 6 mg 06/02/21 15:19 06/02/21 15:20 Adenosine 6 Mg/2 Ml Sdv IVPUSH 06/02/21 15:20 6 mg NOW ONE Administration Adenosine Confirm 06/02/21 15:19 06/02/21 15:39 Adenosine 6 Mg/2 Ml Sdv Administered 06/02/21 15:20 Not Given Dose 6 mg .ROUTE .STK-MED ONE Adenosine Confirm 06/02/21 15:20 06/02/21 15:39 Adenosine 12 Mg/4 Ml Sdv Administered 06/02/21 15:21 Not Given Dose 12 mg .ROUTE .STK-MED ONE Adenosine 12 mg 06/02/21 15:37 06/02/21 15:24 Adenosine 6 Mg/2 Ml Sdv IVPUSH 06/02/21 15:38 12 mg NOW ONE Administration - Radiology Interpretation Free Text/Narrative:: 46-year-old male presents to the ED with a recurrent bout of SVT which he has had at least a dozen times before. He states it has been happening about every 6 months as of late. I have not seen him for about 3 years. He usually settles or converts with Identicard IV usually 6 mg dose works. He was simply sitting down watching TV when this event occurred proxy 45 minutes before coming to the ED. Vagal maneuvers done at home did not convert him. ECG reveals SVT with no discernible P waves a narrow complex tachycardia at 164 bpm but up to 188 bpm on the monitor. Plan we will proceed with intravenous Identicard as soon as it becomes available. We will start with a 6 mg dose - Re-Assessments/Exams Free Text/Narrative Re-Assessment/Exam: 06/02/21 15:27: Patient responded very minimally to the 6 mg Identicard IV dose dropping from 180 to 160 bpm but then rapidly going back up into the 180s. He was therefore challenged with a 12 mg Identicard joules IV which did convert him back to sinus rhythm at around 100/min. He immediately felt relief of the pressure in his chest. Blood pressure is 146 107 at present. heart rate is 86. Routine labs will be obtained 06/02/21 16:13 White count is 8.59 auto differential reveals 60.3% neutrophils. Hemoglobin 17.1 with hematocrit of 50.1 indicating some degree of hemoconcentration. Platelet count is 304,000 06/02/21 16:44 Sodium is 140 with potassium of 3.9. Chloride 102 with a bicarb of 30. Anion gap is 11.9. BUN is 17 with a creatinine of 1.1 and a GFR greater than 60. Glucose is 98 calcium slightly high at 10.3. Magnesium 2.0 liver function normal CK-MB fraction 1.3 troponin I is less than 0.017 total protein 7.9 with an albumin fraction of 4.5 TSH is 1.41. Patient feels fine at this time we spoke at length about potential ablation procedure complications etc. Departure - Departure Time of Disposition: 16:44 Disposition: Home, Self-Care 01 Reason for Transfer *Q: Other Condition: Fair Clinical Impression: Supraventricular tachycardia, paroxysmal Instructions: Supraventricular Tachycardia, Adult, [id number] Referrals: Ascencion Moreira MD [Primary Care Provider] - Forms: ED Department Discharge Additional Instructions: Evaluation in the emergency room today in regards to recurrent bout of supraventricular tachycardia with heart rate as high as 188 bpm at times. You have had this several occasions in the past over many years. Lab work proved to be completely normal. You were treated with intravenous Identicard 6 mg which did not convert you back to sinus rhythm but the 12 mg dose did. You subsequently remained in regular rhythm in the 70s with a blood pressure of 120/84. At this time no changes to medications are to be made. As you discussed you are awaiting further consultation with cardiology services to discuss ablation to prevent this from reoccurring. Sepsis Event Note (ED) - Focused Exam Vital Signs: Vital Signs Temp Pulse Resp BP Pulse Ox 06/02/21 15:10 36.2 C 176 H 18 159/109 H 99
[2021-06-02 15:29] VITALS: BP 159/109; PULSE 176
--- NOTE | 2021-06-02 17:21 | EDM.PDOC ---
ED HPI GENERAL MEDICAL PROBLEM - General Chief Complaint: Cardiovascular Problem Stated Complaint: IRREGULAR HEART BEAT Time Seen by Provider: 06/02/21 15:13 Source of Information: Reports: Patient History Limitations: Reports: No Limitations - History of Present Illness INITIAL COMMENTS - FREE TEXT/NARRATIVE: 46-year-old male presents to the ED with feeling of rapid irregular heartbeat starting about 45 minutes before coming to the ED. He has a history of recurrent bouts of SVT for about the last 8 to 10 years. Usually it was happening once every 2 to 3 years lately has been happening about once every 6 months. He has seen cardiology recently I believe Dr. Jimi Garcia and he is due for further investigations and contemplation of an ablation after the holidays. He has associated shortness of breath heaviness pressure to sensation central chest and mild lightheadedness. He was able to drive the car to the ED. He has been well recently. He states he was just on vacation out to [place] in the [facility] in [place] where he took his mom for her birthday. No recent excess alcohol use. No energy drink use. Onset: Today, Sudden Onset Date: 06/02/21 Onset Time: 14:30 Duration: Minutes: Location: Reports: Chest (Feels his heart racing and fluttering in his chest and going fast.) Quality: Reports: Other Severity: Moderate Improves with: Reports: None Worsens with: Reports: Movement Context: Reports: Other (Spontaneous occurrence of racing heart to 45 minutes before coming to the ED). Denies: Activity (Bending makes him feel a bit worse.), Exercise, Lifting, Sick Contact, Trauma Associated Symptoms: Reports: Chest Pain, Shortness of Breath, Other. Denies: Confusion, Cough, cough w sputum (Asked heaviness but not pain), Diaphoresis, Fever/Chills, Headaches, Loss of Appetite, Malaise, Nausea/Vomiting, Rash, Seizure Treatments LAYER UP: Reports: Other (see below) (Lightheadedness none.) Chest Pain Score (Numeric/FACES): 3 - Related Data Allergies Allergy/AdvReac Type Severity Reaction Status Date / Time No Known Allergies Allergy Verified 06/02/21 15:29 Home Meds: Home Meds Metoprolol Succinate [Toprol Xl] 100 mg PO BEDTIME 11/25/20 [History] Montelukast [Singulair] 10 mg PO DAILY 11/25/20 [History] Past Medical History HEENT History: Reports: Impaired Vision Other HEENT History: wears corrective lenses Cardiovascular History: Reports: Arrhythmia, Hypertension, Other (See Below) Other Cardiovascular History: SVT Respiratory History: Reports: Other (See Below) Other Respiratory History: seasonal allergies Musculoskeletal History: Reports: Back Pain, Chronic, Other (See Below) Other Musculoskeletal History: chronic low back pain - Infectious Disease History Infectious Disease History: Reports: Chicken Pox - Past Surgical History HEENT Surgical History: Reports: Tonsillectomy Cardiovascular Surgical History: Reports: None Social & Family History - Family History Neurological: Reports: CVA Oncologic: Reports: Lung - Tobacco Use Tobacco Use Status *Q: Never Tobacco User Second Hand Smoke Exposure: No - Caffeine Use Caffeine Use: Reports: Soda, Tea - Recreational Drug Use Recreational Drug Use: No - Living Situation & Occupation Living situation: Reports: Single Occupation: Employed (Self-employed car [employer]) ED ROS GENERAL - Review of Systems Review Of Systems: See Below Constitutional: Reports: Fatigue. Denies: Fever, Chills, Malaise, Weakness HEENT: Reports: Glasses Respiratory: Reports: No Symptoms Cardiovascular: Reports: Other (Recurrent bouts of SVT over the last 10 years) Endocrine: Reports: Fatigue GI/Abdominal: Reports: No Symptoms : Reports: No Symptoms, Other Musculoskeletal: Reports: Back Pain (Knees), Joint Pain Skin: Reports: No Symptoms ( back pain occasionally) Neurological: Reports: No Symptoms Psychiatric: Reports: No Symptoms Hematologic/Lymphatic: Reports: No Symptoms Immunologic: Reports: No Symptoms ED EXAM, GENERAL - Physical Exam Exam: See Below Free Text/Narrative:: 46-year-old male presents to the ED with feeling of rapid irregular heartbeat starting about 45 minutes before coming to the ED. He has a history of recurrent bouts of SVT for about the last 8 to 10 years. Usually it was happening once every 2 to 3 years lately has been happening about once every 6 months. He has seen cardiology recently I believe Dr. Jimi Garcia and he is due for further investigations and contemplation of an ablation after the holidays. He has associated shortness of breath heaviness pressure to sensation central chest and mild lightheadedness. He was able to drive the car to the ED. He has been well recently. He states he was just on vacation out to [place] in the [facility] where he took his mom for her birthday. No recent excess alcohol use. No energy drink use. Exam Limited By: No Limitations General Appearance: Alert, WD/WN, Anxious, Other (Mildly anxious. Heart rate is 185 to 188/min. No P waves are discernible compatible with a narrow complex tachycardia or SVT) Throat/Mouth: Normal Inspection, Normal Lips, Normal Teeth, Normal Voice Head: Atraumatic, Normocephalic Neck: Normal Inspection, Supple, Non-Tender, Full Range of Motion. No: Carotid Bruit, Lymphadenopathy (L) Respiratory/Chest: No Respiratory Distress, Lungs Clear, Normal Breath Sounds, No Accessory Muscle Use, Chest Non-Tender Cardiovascular: No Edema, No Gallop, No JVD, No Rub, Tachycardia (SVT on the monitor of 188/min). No: Normal Peripheral Pulses, Regular Rate, Rhythm Peripheral Pulses: 2+: Carotid (L), Carotid (R), Posterior Tibial (L), Posterior Tibial (R), Dorsalis Pedis (L), Dorsalis Pedis (R) GI/Abdominal: Normal Bowel Sounds, Soft, Non-Tender, No Organomegaly, No Distention, Other (Moderately obese. Abdominal girth limits ability to palpate solid organs) Back Exam: Normal Inspection, Full Range of Motion. No: CVA Tenderness (L), CVA Tenderness (R) Extremities: Normal Inspection, Normal Range of Motion, Non-Tender, No Pedal Edema Neurological: Alert, Oriented, CN II-XII Intact, Normal Cognition Psychiatric: Normal Mood, Anxious (Mildly anxious) Skin Exam: Warm, Dry, Intact, Normal Color, No Rash #1 Interpretation EKG Date: 06/02/21 Time: 15:14 Rhythm: Other (Narrow complex tachycardia a SVT) Rate (Beats/Min): 164 [place]: Normal P-Wave: Absent QRS: Other (Narrow complex tachycardia) ST-T: Other (Diffuse ST segment depression V2 to V6 also leads I and aVL consider ischemia versus repolarization pattern due to rapid rate) QT: Prolonged (Minimally prolonged) EKG Interpretation Comments: Abnormal ECG #2 Interpretation EKG Date: 06/02/21 Time: 15:28 Rhythm: NSR Rate (Beats/Min): 82 Ring[place]: LAD-Left Ringgold Deviation (Mild left axis deviation of -14 degrees) P-Wave: Present QRS: Other (Nonspecific intraventricular conduction delay suspect atypical right bundle branch block pattern new Q waves leads III and aVF consider old inferior wall myocardial infarction.) ST-T: Other (Previously noted ST segment depression in the precordial leads has returned to baseline once he was converted back to sinus rhythm) QT: Normal EKG Interpretation Comments: Borderline ECG Course - Vital Signs Last Recorded V/S: Last Vital Signs Temp 36.2 C 06/02/21 15:10 Pulse 176 H 06/02/21 15:10 Resp 18 06/02/21 15:10 BP 159/109 H 06/02/21 15:10 Pulse Ox 99 06/02/21 15:10 - Orders/Labs/Meds Labs: Laboratory Tests 06/02/21 06/02/21 Range/Units 15:15 15:15 WBC 8.59 (4.23-9.07) K/mm3 RBC 5.57 (4.63-6.08) M/mm3 Hgb 17.1 (13.7-17.5) gm/dl Hct 50.1 (40.1-51.0) % MCV 89.9 (79.0-92.2) fl MCH 30.7 (25.7-32.2) pg MCHC 34.1 (32.2-35.5) g/dl RDW Std Deviation 41.9 (35.1-43.9) fL Plt Count 304 (163-337) K/mm3 MPV 10.5 (9.4-12.3) fl Neut % (Auto) 60.3 (34.0-67.9) % Lymph % (Auto) 29.7 (21.8-53.1) % Overton % (Auto) 8.8 (5.3-12.2) % Eos % (Auto) 0.7 L (0.8-7.0) Baso % (Auto) 0.3 (0.1-1.2) % Neut # (Auto) 5.17 (1.78-5.38) K/mm3 Lymph # (Auto) 2.55 (1.32-3.57) K/mm3 Overton # (Auto) 0.76 (0.30-0.82) K/mm3 Eos # (Auto) 0.06 (0.04-0.54) K/mm3 Baso # (Auto) 0.03 (0.01-0.08) K/mm3 Sodium 140 (136-145) mEq/L Potassium 3.9 (3.5-5.1) mEq/L Chloride 102 (98-107) mEq/L Carbon Dioxide 30 (21-32) mEq/L Anion Gap 11.9 (5-15) BUN 17 (7-18) mg/dL Creatinine 1.1 (0.7-1.3) mg/dL Est Cr Clr Drug Dosing 93.08 mL/min Estimated GFR (MDRD) > 60 (>60) mL/min BUN/Creatinine Ratio 15.5 (14-18) Glucose 98 (70-99) mg/dL Calcium 10.3 H (8.5-10.1) mg/dL Magnesium 2.0 (1.8-2.4) mg/dL Total Bilirubin 0.4 (0.2-1.0) mg/dL AST 26 (15-37) U/L ALT 54 (16-63) U/L Alkaline Phosphatase 29 L (46-116) U/L CK-MB (CK-2) 1.3 (0-3.6) ng/ml Troponin I < 0.017 (0.00-0.056) ng/mL Total Protein 7.9 (6.4-8.2) g/dl Albumin 4.5 (3.4-5.0) g/dl Globulin 3.4 gm/dL Albumin/Globulin Ratio 1.3 (1-2) TSH 3rd Generation 1.410 (0.358-3.74) uIU/mL Meds: Medications Discontinued Medications Generic Name Dose Route Start Last Admin Trade Name Harshil PRN Reason Stop Dose Admin Adenosine 6 mg 06/02/21 15:19 06/02/21 15:20 Adenosine 6 Mg/2 Ml Sdv IVPUSH 06/02/21 15:20 6 mg NOW ONE Administration Adenosine Confirm 06/02/21 15:19 06/02/21 15:39 Adenosine 6 Mg/2 Ml Sdv Administered 06/02/21 15:20 Not Given Dose 6 mg .ROUTE .STK-MED ONE Adenosine Confirm 06/02/21 15:20 06/02/21 15:39 Adenosine 12 Mg/4 Ml Sdv Administered 06/02/21 15:21 Not Given Dose 12 mg .ROUTE .STK-MED ONE Adenosine 12 mg 06/02/21 15:37 06/02/21 15:24 Adenosine 6 Mg/2 Ml Sdv IVPUSH 06/02/21 15:38 12 mg NOW ONE Administration - Radiology Interpretation Free Text/Narrative:: 46-year-old male presents to the ED with thing acute evidence of rate racing heart appreciated about 45 minutes before coming to the ED. Patient has a hist ory of recurrent SVT over the last 10 years on an intermittent basis or paroxysmal SVT. He is considering ablation therapy after the holidays. No recent changes to his beta-blockers. He recently came back from vacation and was driving long distances from [place]. When placed on the monitor he is in SVT in the 180s. He has associated central chest heaviness shortness of breath and lightheadedness. Patient usually responds to intravenous Adenocard as I have seen him a couple of times in the past for the same problem. - Re-Assessments/Exams Free Text/Narrative Re-Assessment/Exam: 06/02/21 15:15: When challenged with 6 mg of Adenocard IV it slowed him down transiently to 160 but he bounced right back up into the 180s. The 12 mg dose IV bolus did convert him back to sinus rhythm in the 80s. Patient had relief of his chest discomfort and shortness of breath. He will be monitored in the ED until labs come back. 06/02/21 17:00: Patient feels complete back to normal. He will be discharged home since his labs came back completely normal. No changes made to medications at this time. Departure - Departure Time of Disposition: 17:23 Disposition: Home, Self-Care 01 Condition: Fair Clinical Impression: Supraventricular tachycardia, paroxysmal Instructions: Supraventricular Tachycardia, Adult, [id number] Referrals: Ascencion Moreira MD [Primary Care Provider] - Forms: ED Department Discharge Additional Instructions: Evaluation in the emergency room today in regards to recurrent bout of supraventricular tachycardia with heart rate as high as 188 bpm at times. You have had this several occasions in the past over many years. Lab work proved to be completely normal. You were treated with intravenous Identicard 6 mg which did not convert you back to sinus rhythm but the 12 mg dose did. You subsequently remained in regular rhythm in the 70s with a blood pressure of 120/84. At this time no changes to medications are to be made. As you discussed you are awaiting further consultation with cardiology services to discuss ablation to prevent this from reoccurring. Sepsis Event Note (ED) - Evaluation Sepsis Screening Result: No Definite Risk - Focused Exam Vital Signs: Vital Signs Temp Pulse Resp BP Pulse Ox 06/02/21 15:10 36.2 C 176 H 18 159/109 H 99
== END 2021-06-02 17:06 | disposition home or self-care (01) ==
LOC: JD.ED 15:05
DX: I47.1 Supraventricular tachycardia (principal); I10 Essential (primary) hypertension
CPT/HCPCS: 36415; 80053; 82553; 83735; 84443; 84484; 85025; 93005; 96374; 99285; J0153; 93010

== ENCOUNTER 2024-02-29 06:47 | Emergency (ER) | payer BC ==
[2024-02-29] MEDS ORDERED: Adenosine 6 MG/2 ML SDV ONE (06:57)
[2024-02-29] MEDS ORDERED: Adenosine 12 MG/4 ML SDV ONE (06:58)
[2024-02-29] MEDS: Adenosine 6 MG/2 ML SDV IVPUSH ONE (07:00)
[2024-02-29 07:21] LABS: BASOPHILS ABSOLUTE AUTO 0.1 K/mm3 (0.0-0.2); BASOPHILS PERCENT AUTO 0.5 % (0.0-1.0); EOSINOPHILS ABSOLUTE AUTO 0.1 K/mm3 (0.0-0.4); EOSINOPHILS PERCENT AUTO 1.1 % (0.0-6.0); HEMATOCRIT 47.9 % (42.0-52.0); HEMOGLOBIN 16.6 gm/dl (14.0-18.0); IMMATURE GRAN ABSOLUTE AUTO 0.04 K/mm3 (0.00-0.05); IMMATURE GRAN PERCENT AUTO 0.4 % (0.0-0.4); LYMPHOCYTES ABSOLUTE AUTO 3.5 K/mm3 (1.0-4.8); LYMPHOCYTES PERCENT AUTO 35.8 % (24.0-44.0); MEAN CORPUSCULAR HEMOGLOBIN 31.1 pg (28.0-32.0); MEAN CORPUSCULAR HGB CONC 34.7 g/dl (32.0-36.0); MEAN CORPUSCULAR VOLUME 89.7 fl (83.0-99.0); MEAN PLATELET VOLUME 10.5 fl (9.4-12.4); MONOCYTES ABSOLUTE AUTO 0.8 K/mm3 (0.0-0.8); MONOCYTES PERCENT AUTO 8.2 % (0.0-8.0); NEUTROPHILS ABSOLUTE AUTO 5.3 K/mm3 (1.8-7.7); PLATELET COUNT,PLT 270 K/mm3 (150-400); RED BLOOD CELL COUNT 5.34 M/mm3 (4.52-5.90)
[2024-02-29 07:34] LABS: A/G RATIO 1.2 (1-2); ALBUMIN 3.8 g/dl (3.4-5.0); ANION GAP 14.9 (5-15); BILIRUBIN TOTAL 0.4 mg/dL (0.2-1.0); CALCIUM 9.1 mg/dL (8.5-10.1); CREATININE 1.1 mg/dL (0.7-1.3); EST CRCL DRUG DOSING (CG) 91.12 mL/min; MAGNESIUM 1.7 mg/dL (1.8-2.4); POTASSIUM,K 3.9 mEq/L (3.5-5.1); PROTEIN TOTAL,TP 6.9 g/dl (6.4-8.2)
[2024-02-29 08:02] VITALS: BP 137/94; PULSE 72
== END 2024-02-29 08:15 | disposition home or self-care (01) ==
LOC: JD.ED 06:47
DX: I47.10 Supraventricular tachycardia, unspecified (principal); I10 Essential (primary) hypertension; Z79.899 Other long term (current) drug therapy
CPT/HCPCS: 36415; 80053; 83735; 84443; 84484; 85025; 93005; 96374; 99285; J0153

== ENCOUNTER 2025-01-13 03:35 | Emergency (ER) | payer BC ==
[2025-01-13] MEDS ORDERED: Sodium Chloride 0.9% 10 ML Syringe FLUSH PRN (03:58)
[2025-01-13 04:16] LABS: BASOPHILS ABSOLUTE AUTO 0.1 K/mm3 (0.0-0.2); BASOPHILS PERCENT AUTO 0.6 % (0.0-1.0); EOSINOPHILS ABSOLUTE AUTO 0.1 K/mm3 (0.0-0.4); EOSINOPHILS PERCENT AUTO 0.8 % (0.0-6.0); IMMATURE GRAN ABSOLUTE AUTO 0.02 K/mm3 (0.00-0.05); IMMATURE GRAN PERCENT AUTO 0.2 % (0.0-0.4); LYMPHOCYTES ABSOLUTE AUTO 3.2 K/mm3 (1.0-4.8); LYMPHOCYTES PERCENT AUTO 36.3 % (24.0-44.0); MEAN PLATELET VOLUME 10.2 fl (9.4-12.4); MONOCYTES ABSOLUTE AUTO 0.8 K/mm3 (0.0-0.8); MONOCYTES PERCENT AUTO 8.9 % (0.0-8.0); NEUTROPHILS ABSOLUTE AUTO 4.8 K/mm3 (1.8-7.7); NEUTROPHILS PERCENT AUTO 53.2 % (41.0-71.0); NRBC ABSOLUTE 0.00 (0.00-0.02); NRBC PERCENT 0.0 % (0.0-0.2); PLATELET COUNT,PLT 256 K/mm3 (150-400); RED BLOOD CELL COUNT 5.29 M/mm3 (4.52-5.90); WHITE BLOOD CELL COUNT,WBC 8.91 K/mm3 (3.9-11.3)
[2025-01-13] MEDS: Adenosine 12 MG/4 ML SDV ONE (04:17)
[2025-01-13 04:41] LABS: A/G RATIO 1.4 (1-2); ALANINE AMINOTRANSFERASE,ALT 61.0 U/L (16-63); ASPARTATE AMNIOTRANSFERASE,AST 30.0 U/L (15-37); BILIRUBIN TOTAL 0.5 mg/dL (0.2-1.0); BLOOD UREA NITROGEN,BUN 14.0 mg/dL (7-18); CARBON DIOXIDE,CO2 27.0 mEq/L (21-32); CHLORIDE,CL 102.0 mEq/L (98-107); CREATININE 1.1 mg/dL (0.7-1.3); EST CRCL DRUG DOSING (CG) 90.14 mL/min; ESTIMATED GFR 83.0 mL/min (>60); GLUCOSE RANDOM 96.0 mg/dL (70-99); POTASSIUM,K 3.5 mEq/L (3.5-5.1); PROTEIN TOTAL,TP 7.8 g/dl (6.4-8.2); SODIUM,NA 139.0 mEq/L (136-145); TROPONIN I HIGH SENSITIVITY 11.0 pg/mL (<=76); TSH 3.245 uIU/mL (0.358-3.74)
[2025-01-13 05:59] VITALS: BP 136/92; PULSE 79
== END 2025-01-13 05:45 | disposition home or self-care (01) ==
LOC: JD.ED 03:35
DX: I47.10 Supraventricular tachycardia, unspecified (principal); I10 Essential (primary) hypertension; Z79.899 Other long term (current) drug therapy
CPT/HCPCS: 36415; 80053; 83735; 84443; 84484; 85025; 93005; 96361; 96374; 99285-25; J0153; J7030